=== PATIENT | male | born 1980 | race Caucasian/White ===

== ENCOUNTER 2020-12-18 06:04 | Inpatient (IN) ==
[2020-12-18] MEDS ORDERED: HEPARIN 5,000 UNIT/1 ML VIAL ONE ×2 (06:06→06:50)
[2020-12-18] MEDS ORDERED: HEPARIN 5,000 UNIT/1 ML VIAL IV STA (06:13)
[2020-12-18] MEDS ORDERED: LIDOCAINE 1% 20 ML VIAL ONE (06:23)
[2020-12-18] MEDS ORDERED: HEPARIN/NACL 0.9% 2 UNITS/ML 2,000 UNIT/1,000 ML BAG IV ONE (06:23)
[2020-12-18] MEDS ORDERED: HYDROmorphone 2 MG/1 ML VIAL ONE (06:26)
[2020-12-18] MEDS ORDERED: BIVALIRUDIN 250 MG VIAL IV ONE (06:26)
[2020-12-18] MEDS ORDERED: MIDAZOLAM 2 MG/2 ML VIAL ONE ×2 (06:27→09:58)
[2020-12-18] MEDS ORDERED: diphenhydrAMINE 50 MG/1 ML VIAL ONE (06:36)
[2020-12-18] MEDS ORDERED: TIROFIBAN 5,000 MCG/100 ML PREMIX IV ONE (06:45)
[2020-12-18] MEDS ORDERED: TIROFIBAN 5,000 MCG/100 ML PREMIX IV SCH (06:50)
[2020-12-18 06:56] LABS: Basophils # 0.1 10*3/uL (0.0-0.2); Basophils % 0.5 % (0.0-0.8); Eosinophils # 0.2 10*3/uL (0.0-0.87); Eosinophils % 2.1 % (0.00-10.9); Hematocrit 42.2 VOL% (42.0-52.0); Immature Granulocytes % 0.5 %; Immature Granulocytes Absolute 0.05 #; Lymphocytes # 2.4 10*3/uL (1.4-4.0); Lymphocytes % 24.4 % (21.2-54.2); Mean Corpuscular HGB Conc 33.2 GM/DL (32-36); Mean Corpuscular Volume 95.7 FL (87-102); Monocytes % 11.3 % (1.7-12.7); Neutrophils % 61.2 % (38.7-73.9); Platelet Count 315 T/CUMM (130-400); Red Blood Count 4.41 MC/CUMM (3.8-5.5); Red Cell Distribution Width 12.2 % (9.3-17.3); White Blood Count 9.6 T/CUMM (4-12)
[2020-12-18 07:05] LABS: PT Patient Result 10.9 SECS (10.5-12.0); Partial Thromboplastin Time 81.4 SECS (23.9-33.8)
[2020-12-18 07:11] LABS: Blood Urea Nitrogen 18 MG/DL (7-18); Calcium 8.3 MG/DL (8.5-10.1); Carbon Dioxide 23 MMOL/L (21-32); Estimated Glom Filtration Rate 76 ML/MIN; Glucose 131 MG/DL (74-106); HDL Cholesterol 34 MG/DL (40-60); Osmolality,Calculated 280.5 MOS/KG (273-304); Potassium 3.8 MMOL/L (3.5-5.1); Risk Ratio 5.21; Sodium 139 MMOL/L (136-145); Triglycerides 171 MG/DL (2-150); VLDL Cholesterol 34.2 MG/DL
[2020-12-18] MEDS ORDERED: TICAGRELOR 90 MG TABLET ONE (07:13)
[2020-12-18] MEDS ORDERED: ZALEPLON 5 MG CAPSULE PO PRN (07:34)
[2020-12-18] MEDS ORDERED: NITROGLYCERIN SL 0.4 MG TABLET SL PRN (07:34)
[2020-12-18] MEDS ORDERED: ONDANSETRON 4 MG/2 ML VIAL IV PRN (07:34)
[2020-12-18] MEDS ORDERED: FUROSEMIDE 40 MG/4 ML VIAL IV ONE (07:44)
[2020-12-18] MEDS ORDERED: SODIUM CHLORIDE 0.9% 1,000 ML IV SCH (08:00)
[2020-12-18 08:15] LABS: Bacteria,Urine Occasional /HPF (Few); Bilirubin,Urine Negative (Negative); Blood, Urine Large mg/dL (Negative); Glucose,Urine (UA) 50 mg/dL (Negative); Ketones,Urine Negative (Negative); Mucus,Urine Occasional /LPF (Occasional); Nitrite,Urine Negative (Negative); Protein,Urine Negative; RBC,Urine 4 /HPF (0-4); Urine Appearance CLEAR (Clear); Urine Color Yellow (Yellow); Urine Specific Gravity 1.056 (1.001-1.035); Urine Urobilinogen < 2.0 EU/DL (0.2-1.0)
[2020-12-18 08:57] LABS: Barbiturates Screen,Urine Negative (Negative); Benzodiazepines Screen,Urine Positive (Negative); Cannabinoid Screen,Urine Positive (Negative); Opiate Screen,Urine Positive (Negative); Phencyclidine Screen,Urine Negative (Negative)
[2020-12-18] MEDS ORDERED: NOREPINEPHRINE 8 MG in SODIUM CHLORIDE 0.9% 242 ML IV PRN ×2 (09:28→09:30)
[2020-12-18 09:38] LABS: ABG Base Excess -3.4 MMOL/L (-2.5-2.5); ABG HCO3 22.6 MMOL/L (20-26); ABG PCO2 43.8 MM HG (35-48); ABG PO2 64.1 MM HG (80-95); ABG TCO2 23.9 MMOL/L (23-27)
[2020-12-18] MEDS ORDERED: MIDAZOLAM 2 MG/2 ML VIAL IV ONE (10:40)
[2020-12-18] MEDS: PANTOPRAZOLE 40 MG TABLET PO SCH (12:03)
[2020-12-18] MEDS: TICAGRELOR 90 MG TABLET PO SCH ×2 (12:03→20:45)
[2020-12-18] MEDS: ASPIRIN EC 81 MG TABLET PO SCH (12:03)
[2020-12-18 17:35] LABS: CKMB % 9.6 %
[2020-12-18 17:37] LABS: High Sensitive Troponin I* > 125000 ng/L (0-78)
[2020-12-18] MEDS: ROSUVASTATIN 20 MG TABLET PO SCH (20:45)
[2020-12-19 00:55] LABS: CKMB % 6.9 %; High Sensitive Troponin I* 111719.9 ng/L (0-78)
[2020-12-19 04:59] LABS: Basophils % 0.3 % (0.0-0.8); Eosinophils # 0.1 10*3/uL (0.0-0.87); Eosinophils % 0.8 % (0.00-10.9); Hemoglobin 12.3 GM/DL (14.0-18.0); Immature Granulocytes % 0.6 %; Immature Granulocytes Absolute 0.07 #; Lymphocytes # 1.3 10*3/uL (1.4-4.0); Lymphocytes % 11.9 % (21.2-54.2); Mean Corpuscular HGB Conc 33.2 GM/DL (32-36); Mean Corpuscular Volume 95.6 FL (87-102); Mean Platelet Volume 9.7 FL (9.6-12.0); Monocytes % 9.3 % (1.7-12.7); Neutrophils % 77.1 % (38.7-73.9); Platelet Count 300 T/CUMM (130-400); Red Blood Count 3.87 MC/CUMM (3.8-5.5); Red Cell Distribution Width 12.4 % (9.3-17.3); White Blood Count 11.2 T/CUMM (4-12)
[2020-12-19 05:14] LABS: Calcium 8.3 MG/DL (8.5-10.1); Osmolality,Calculated 275.7 MOS/KG (273-304); Potassium 3.6 MMOL/L (3.5-5.1)
[2020-12-19] MEDS ORDERED: FUROSEMIDE 40 MG/4 ML VIAL IV ONE (07:00)
[2020-12-19] MEDS: PANTOPRAZOLE 40 MG TABLET PO SCH (08:07)
[2020-12-19] MEDS: lisinopriL 5 MG TABLET PO SCH (08:07)
[2020-12-19] MEDS: ASPIRIN EC 81 MG TABLET PO SCH (08:07)
[2020-12-19] MEDS: TICAGRELOR 90 MG TABLET PO SCH ×2 (08:08→21:40)
[2020-12-19] MEDS: ROSUVASTATIN 20 MG TABLET PO SCH (21:40)
[2020-12-20] MEDS: TICAGRELOR 90 MG TABLET PO SCH ×2 (09:18→23:23)
[2020-12-20] MEDS: ASPIRIN EC 81 MG TABLET PO SCH (09:18)
[2020-12-20] MEDS: lisinopriL 5 MG TABLET PO SCH (09:19)
[2020-12-20] MEDS: PANTOPRAZOLE 40 MG TABLET PO SCH (09:19)
[2020-12-20 12:10] LABS: Basophils % 0.3 % (0.0-0.8); Eosinophils # 0.1 10*3/uL (0.0-0.87); Eosinophils % 1.1 % (0.00-10.9); Hematocrit 35.6 VOL% (42.0-52.0); Hemoglobin 11.8 GM/DL (14.0-18.0); Immature Granulocytes % 0.7 %; Immature Granulocytes Absolute 0.07 #; Lymphocytes # 1.5 10*3/uL (1.4-4.0); Lymphocytes % 15.7 % (21.2-54.2); Mean Corpuscular HGB Conc 33.1 GM/DL (32-36); Mean Corpuscular Volume 94.7 FL (87-102); Mean Platelet Volume 9.5 FL (9.6-12.0); Monocytes % 11.3 % (1.7-12.7); Neutrophils % 70.9 % (38.7-73.9); Platelet Count 292 T/CUMM (130-400); Red Blood Count 3.76 MC/CUMM (3.8-5.5); Red Cell Distribution Width 12.1 % (9.3-17.3); White Blood Count 9.7 T/CUMM (4-12)
[2020-12-20 12:41] LABS: Albumin 2.8 G/DL (3.4-5.0); Bilirubin,Total 0.5 MG/DL (0.20-1.00); Calcium 8.3 MG/DL (8.5-10.1); Osmolality,Calculated 271.1 MOS/KG (273-304); Potassium 3.7 MMOL/L (3.5-5.1); Total Protein 6.7 G/DL (6.4-8.2)
[2020-12-20] MEDS: ROSUVASTATIN 20 MG TABLET PO SCH (23:23)
[2020-12-21 05:21] LABS: Basophils % 0.4 % (0.0-0.8); Eosinophils # 0.2 10*3/uL (0.0-0.87); Eosinophils % 1.5 % (0.00-10.9); Hematocrit 33.7 VOL% (42.0-52.0); Hemoglobin 11.3 GM/DL (14.0-18.0); Immature Granulocytes % 0.8 %; Immature Granulocytes Absolute 0.08 #; Lymphocytes # 1.5 10*3/uL (1.4-4.0); Lymphocytes % 14.4 % (21.2-54.2); Mean Corpuscular HGB Conc 33.5 GM/DL (32-36); Mean Corpuscular Volume 94.9 FL (87-102); Mean Platelet Volume 9.7 FL (9.6-12.0); Monocytes % 10.9 % (1.7-12.7); Platelet Count 265 T/CUMM (130-400); Red Blood Count 3.55 MC/CUMM (3.8-5.5); Red Cell Distribution Width 11.9 % (9.3-17.3); White Blood Count 10.1 T/CUMM (4-12)
[2020-12-21 05:39] LABS: Calcium 8.4 MG/DL (8.5-10.1); Osmolality,Calculated 278.5 MOS/KG (273-304); Potassium 3.7 MMOL/L (3.5-5.1)
[2020-12-21] MEDS: ASPIRIN EC 81 MG TABLET PO SCH (09:23)
[2020-12-21] MEDS: PANTOPRAZOLE 40 MG TABLET PO SCH (09:23)
[2020-12-21] MEDS: TICAGRELOR 90 MG TABLET PO SCH (09:23)
[2020-12-21] MEDS: lisinopriL 5 MG TABLET PO SCH (09:23)
[2020-12-21 10:29] VITALS: BP 110/58
== END 2020-12-21 12:35 | disposition home or self-care (01) | DRG 246 ==
LOC: N.ED 06:04 → N.CL 07:04 → N.ICU 08:14 → N.TELES 12-19 12:36
PROVIDERS: ADMIT Internal Medicine Cardiovascular Disease; ATTEND Internal Medicine Cardiovascular Disease
PROC: CLCCHCL (ICD-10-PCS; 2020-12-18 06:45)